=== PATIENT | female | born 1975 | race Caucasian/White ===

== ENCOUNTER → 2019-08-13 | Outpatient (CLI) | payer OTHER ==
--- NOTE | 2019-08-13 14:23 | XR ---
EXAM TYPE: LUMBAR SPINE X RAY SERIES COMPARISON: 03/21/2018 HISTORY: Pain TECHNIQUE: 4 views are submitted. FINDINGS: Alignment is anatomic. The pedicles are intact. The transverse processes are intact. There is no s pondylolysis or spondylolisthesis. There is multilevel degenerative disc disease and facet arthropat hy. Stable chronic appearing areas of sclerosis involving the sacrum and iliac bone. Unchanged from 2 010. IMPRESSION: 1. Multilevel degenerative disc disease and facet arthropathy.
== END | disposition home or self-care (01) ==
LOC: RADXRYALE 13:51
PROVIDERS: ATTEND Physician Assistant Medical
DX: M51.36 Other intervertebral disc degeneration, lumbar region (principal); M46.96 Unspecified inflammatory spondylopathy, lumbar region
CPT/HCPCS: 72110